=== PATIENT | female | born 1985 | race Caucasian/White ===

== ENCOUNTER 2019-07-14 02:07 | Emergency (ER) | payer OTHER ==
[2019-07-14 02:13] VITALS: BP 139/96; PULSE 78; TEMP 98.1; BMI 23.1
--- NOTE | 2019-07-14 02:27 | PDOC ---
History of Present Illness - General Chief Complaint: Bite Stated Complaint: CAT BITE Time Seen by Provider: 07/14/19 02:08 - History of Present Illness Initial Comments: This otherwise healthy 33-year-old woman presents with a cat bite to the left side of her neck while at work just prior to evaluation. 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 While being restrained by the patient during evaluation, a cat bit the left side of patient's neck. No other injury sustained. Animal was being evaluated for medication overdose and had no apparent acute infectious process. Patient has no previous history of poor wound healing or resistant organism colonization/infection. She had one previous history of cat bite sustained at work, that wound healed without complications; Flagyl is used as antibiotic at that time. Patient has no history of allergy to medication. Previous tetanus prophylaxis is thought to be approximately 10 years ago. Medications as noted below. Non-smoker; no daily alcohol; no recreational drug use Past History - Past Medical History Allergies/Adverse Reactions: Allergies Allergy/AdvReac Type Severity Reaction Status Date / Time No Known Allergies Allergy Unverified 07/14/19 02:27 Home Medications: Ambulatory Orders Amoxicillin/Potassium Clav [Augmentin 875-125 Tablet] 1 each PO BID #14 tablet 07/14/19 Sertraline HCl [Zoloft] 100 mg PO DAILY 07/14/19 COPD: No - Psycho Social/Smoking Cessation Hx Smoking History: Never smoked Review of Systems - Review of Systems Able to Perform ROS?: Yes Comments:: 12 point review of systems is negative except for what is noted in the history of present illness *Physical Exam - Vital Signs Last Vital Signs Temp Pulse Resp BP Pulse Ox 98.1 F 78 16 139/96 100 07/14/19 02:08 07/14/19 02:08 07/14/19 02:08 07/14/19 02:08 07/14/19 02:08 - Physical Exam Comments: GENERAL: Adult female, alert and oriented x3, no acute distress HEAD: Normal with no signs of trauma. EYES: PERRLA, EOMI, sclera anicteric, conjunctiva clear. NECK: Normal range of motion, supple without lymphadenopathy, JVD, or masses. Curvilinear 3.5 cm erythematous, slightly raised area mid lateral left side of neck; mildly tender, no fluctuance superficial punctate wounds, nonbleeding consistent with bites are distributed in linear pattern within this edematous area No hematoma or ecchymosis present NEUROLOGICAL: Cranial nerves II through XII grossly intact. Normal speech. No focal neurological deficits. 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 No other injuries present. Patient has no history of wound healing difficulties or drug allergies. Exam is noted with area of edema/contusion without ecchymosis and superficial, nonbleeding punctate wounds within this area consistent with bite spring. No evidence of deep tissue injury or hematoma Wound was cleansed with Hibiclens and sterile normal saline. Since patient is going home and not returning to work at this time, we will leave the wound open to air. Patient was advised to keep the wound closed (large Band-Aid/ bacitracin provided for the patient) while working at the [facility] and otherwise leave wound open to air. Augmentin 875/125 twice a day for 1 week will be prescribed. First dose of this antibiotic given here in the ER. Patient has been advised to take this medication with a full meal (patient states that she has recently eaten). She should follow-up with her doctor for wound check within the next 5 days but return to the ER if she has increase in swelling/warmth/redness/pain in the area of the wounds or develops fever/chills Discharge - Discharge Information Problems reviewed: Yes Clinical Impression/Diagnosis: Cat bite Qualifiers: Encounter type: initial encounter Qualified Code(s): W55.01XA - Bitten by cat, initial encounter Condition: Stable Disposition: HOME - Additional Discharge Information Prescriptions: Amoxicillin/Potassium Clav [Augmentin 875-125 Tablet] 1 each PO BID #14 tablet - Follow up/Referral - Patient Discharge Instructions Patient Printed Discharge Instructions: DI for Cat Bite Additional Instructions: Augmentin 875/125 twice a day for 1 week; take each dose with a meal Cover wound with bacitracin or Neosporin/Band-Aid when at work, otherwise keep open to air Return to ER if you have increased pain, swelling, redness or have any discharge from the wound Follow-up with your doctor within the next 5 days - Post Discharge Activity Work/Back to School Note: Back to Work
[2019-07-14] MEDS ORDERED: AMOX TR/POT CLAV 875MG/125MG TABLETS (FP) PO ONE (02:28)
[2019-07-14] MEDS ORDERED: DIPHTH,PERTUSS(ACELL),TET 0.5 ML DISP.SYRIN IM ONE ×2 (02:29→02:31)
[2019-07-14] MEDS ORDERED: AMOX TR/POT CLAV 875MG/125MG TABLETS (FP) ONE (02:31)
== END 2019-07-14 02:37 | disposition home or self-care (01) ==
LOC: FER 02:07
PROC: 3E0234Z Introduction of Serum, Toxoid and Vaccine into Muscle, Percutaneous Approach (ICD-10-PCS; principal; 2019-07-14)
DX: S11.95XA Open bite of unspecified part of neck, initial encounter (principal); W55.01XA Bitten by cat, initial encounter; Y93.89 Activity, other specified; Y92.89 Other specified places as the place of occurrence of the external cause; Y99.0 Civilian activity done for income or pay
CPT/HCPCS: 90715; 99282-25